=== PATIENT | female | born 1975 | race Caucasian/White ===

== ENCOUNTER 2017-07-25 00:25 | Emergency (ER) | payer OTHER, SELFPAY ==
[2017-07-25 01:17] LABS: Bilirubin Negative (Negative); Blood, Urine Negative (Negative); Glucose, Urine (Dipstick) 100 mg/dL (Negative); Leukocyte Negative (Negative); Nitrite Positive (Negative); Protein, Urine (Dipstick) 30 mg/dL (Neg-Trace)
[2017-07-25 01:19] LABS: Clarity Hazy (Clear)
[2017-07-25 01:20] LABS: Specific Gravity, Urine 1.031 (1.002-1.036)
[2017-07-25 01:21] LABS: Pregnancy Test - Urine (BHCG) Negative (Negative); Pregu Control Background? CLEAR/WHITE (CLR/WHITE); Pregu Control Bar Appear? YES (CONTROL BAR); Specific Gravity 1.031 (1.002-1.036)
[2017-07-25 01:23] LABS: RBC/HPF None Seen HPF (0-3)
[2017-07-25 01:24] LABS: Bacteria/HPF 1+ HPF (None Seen)
[2017-07-25] MEDS ORDERED: Sulfameth/Trimethoprim DS 800-160mg TAB ONE (01:40)
[2017-07-25] MEDS ORDERED: Cyclobenzaprine 10 MG TAB ONE (01:41)
[2017-07-25] MEDS ORDERED: Ketorolac Tromethamine 60 MG/2 ML VIAL ONE (01:45)
== END 2017-07-25 02:15 | disposition home or self-care (01) ==
LOC: NAV ERS 00:25
DX: M54.6 Pain in thoracic spine (principal); N30.00 Acute cystitis without hematuria; E11.9 Type 2 diabetes mellitus without complications; I10 Essential (primary) hypertension; E66.9 Obesity, unspecified; F17.210 Nicotine dependence, cigarettes, uncomplicated
CPT/HCPCS: 81003; 81015; 81025; 96372; J1885